=== PATIENT | female | born 1990 | race Caucasian/White ===

== ENCOUNTER 2022-10-08 06:56 | Outpatient (CLI) | payer OTHER ==
[2022-10-08 07:33] LABS: BASOPHILS # (AUTO) 0.1 K/uL (0.00-0.22); BASOPHILS % (AUTO) 1.2 % (0.0-2.0); EOSINOPHILS # (AUTO) 0.1 K/uL (0-0.4); EOSINOPHILS % (AUTO) 1.3 % (0.0-4.0); HEMATOCRIT 33.3 % (36-48); HEMOGLOBIN 10.7 g/dL (12.0-16.0); LYMPHOCYTES # (AUTO) 3.1 K/uL (2.5-16.5); LYMPHOCYTES % (AUTO) 31.8 % (20.5-51.1); MEAN CORPUSCULAR HEMOGLOBIN 23 pg (27-31); MEAN CORPUSCULAR HGB CONC 32 g/dL (33-37); MEAN CORPUSCULAR VOLUME 72.6 fL (80-94); MONOCYTES # (AUTO) 0.4 K/uL (0.8-1.0); MONOCYTES % (AUTO) 4.5 % (1.7-9.3); NEUTROPHILS # (AUTO) 5.9 K/uL (1.8-7.7); NEUTROPHILS % (AUTO) 61.2 % (42.2-75.2); PLATELET COUNT (AUTO) 366 K/uL (140-450); RED BLOOD CELL COUNT(AUTO) 4.59 MIL/uL (4.20-5.40); RED CELL DISTRIBUTION WIDTH 16.7 % (11.6-13.7); WHITE BLOOD COUNT (AUTO) 9.7 K/uL (4.8-10.8)
[2022-10-08 09:21] LABS: ALBUMIN 3.6 g/dL (3.4-5.0); ANION GAP 14.6 (8-16); CARBON DIOXIDE 24.3 mmol/L (21-32); CHOL/HDL RATIO 4.6 (1-4.5); CREATININE 0.8 mg/dL (0.6-1.3); POTASSIUM 3.9 mmol/L (3.5-5.1); THYROID STIMULATING HORMONE 2.73 uIU/mL (0.34-3.74); TOTAL BILIRUBIN 0.2 mg/dL (0.0-1.0)
[2022-10-08 09:49] LABS: APPEARANCE,URINE CLEAR (CLEAR); BILIRUBIN,URINE NEGATIVE (NEGATIVE); BLOOD, URINE 3+ (NEGATIVE); COLOR,URINE YELLOW (YELLOW); LEUKOCYTE ESTERASE ,URINE 1+ (NEGATIVE); NITRITE, URINE NEGATIVE (NEGATIVE); PH,URINE 5.5 (5.0-9.0); UGLUCOSE NEGATIVE (NEGATIVE)
[2022-10-09 09:07] LABS: ESTRADIOL SERUM 32.6 pg/mL (.); T4 (THYROXINE) 7.6 ug/dL (4.5-12.0)
== END 2022-10-08 21:05 | disposition home or self-care (01) ==
LOC: MLB 06:56
DX: Z13.1 Encounter for screening for diabetes mellitus (principal); Z13.9 Encounter for screening, unspecified; I10 Essential (primary) hypertension; E78.5 Hyperlipidemia, unspecified; Z79.899 Other long term (current) drug therapy
CPT/HCPCS: 36415; 80053; 81003; 82306; 82670; 83036; 84144; 84403; 84436; 84443; 85025; 87086

== ENCOUNTER 2022-12-02 07:57 | Emergency (ER) | payer OTHER ==
[~2022-12-02] VITALS: Ht 170.2 cm; Wt 122.5 kg
[2022-12-02 07:59] VITALS: BP 134/74; PULSE 75; RESP 18; TEMP 97; O2SAT 96
--- NOTE | 2022-12-02 08:02 | NUR ---
PT NOT AT BEDSIDE. UNABLE TO LOCATE. RESTROOMS CHECKED AND ED AREA
[2022-12-02] MEDS ORDERED: NIRM1TAB PO (09:04)
== END 2022-12-02 09:14 | disposition home or self-care (01) ==
LOC: MED 07:57
DX: U07.1 COVID-19 (principal); Z79.899 Other long term (current) drug therapy
CPT/HCPCS: 81025; 99283

== ENCOUNTER 2023-04-22 08:11 | Emergency (ER) | payer OTHER ==
[~2023-04-22] VITALS: Ht 167.6 cm; Wt 127.0 kg
[~2023-04-22 08:11] MED LIST: NIRM1TAB PO
[2023-04-22 08:16] VITALS: BP 126/69; PULSE 92; RESP 20; TEMP 97.5; O2SAT 97
[2023-04-22] MEDS ORDERED: NIRM1TAB PO (08:26)
[2023-04-22 09:01] VITALS: BP 126/69; PULSE 92; RESP 20; TEMP 97.5; O2SAT 97
== END 2023-04-22 09:00 | disposition home or self-care (01) ==
LOC: MED 08:11
DX: U07.1 COVID-19 (principal); Z79.899 Other long term (current) drug therapy
CPT/HCPCS: 81025; 99283

== ENCOUNTER 2023-08-23 14:17 | Emergency (ER) | payer OTHER ==
[~2023-08-23] VITALS: Ht 170.2 cm; Wt 127.0 kg
[2023-08-23 14:32] VITALS: PULSE 78; RESP 18; TEMP 96.4; O2SAT 97
[2023-08-23] MEDS: KETOROLAC 30 MG/ML VIAL IM ONE (15:13)
[2023-08-23] MEDS ORDERED: CYCL-711 PO (16:22)
[2023-08-23] MEDS ORDERED: NAPR-54 PO (16:22)
[2023-08-23] MEDS ORDERED: LID5T TP (16:22)
[2023-08-23] MEDS ORDERED: TRAM-748 PO (16:22)
== END 2023-08-23 16:41 | disposition home or self-care (01) ==
LOC: MED 14:17
DX: S83.8X2A Sprain of other specified parts of left knee, initial encounter (principal); M54.50 Low back pain, unspecified; Z79.899 Other long term (current) drug therapy; W18.30XA Fall on same level, unspecified, initial encounter; Y93.89 Activity, other specified; Y92.89 Other specified places as the place of occurrence of the external cause; Y99.8 Other external cause status
CPT/HCPCS: 72110; 73562; 73590; 81025; 96372; 99284; J1885

== ENCOUNTER 2023-10-04 06:18 | Outpatient (CLI) | payer OTHER ==
[~2023-10-04 06:18] MED LIST changes: +CYCL-711 PO; +LID5T TP; +NAPR-337 PO; +TRAM-748 PO
[2023-10-04 07:52] LABS: BASOPHILS # (AUTO) 0.1 K/uL (0.00-0.22); BASOPHILS % (AUTO) 0.9 % (0.0-2.0); EOSINOPHILS # (AUTO) 0.1 K/uL (0-0.4); EOSINOPHILS % (AUTO) 1.3 % (0.0-4.0); HEMATOCRIT 34.5 % (36-48); LYMPHOCYTES # (AUTO) 3.2 K/uL (2.5-16.5); LYMPHOCYTES % (AUTO) 29.7 % (20.5-51.1); MEAN CORPUSCULAR HEMOGLOBIN 23 pg (27-31); MEAN CORPUSCULAR HGB CONC 32 g/dL (33-37); MEAN CORPUSCULAR VOLUME 73.3 fL (80-94); MONOCYTES # (AUTO) 0.4 K/uL (0.8-1.0); MONOCYTES % (AUTO) 4.1 % (1.7-9.3); NEUTROPHILS # (AUTO) 6.9 K/uL (1.8-7.7); PLATELET COUNT (AUTO) 392 K/uL (140-450); RED BLOOD CELL COUNT(AUTO) 4.71 MIL/uL (4.20-5.40); RED CELL DISTRIBUTION WIDTH 17.5 % (11.6-13.7); WHITE BLOOD COUNT (AUTO) 10.8 K/uL (4.8-10.8)
[2023-10-04 08:14] LABS: ALBUMIN 3.6 g/dL (3.4-5.0); ANION GAP 10.4 (8-16); CALCIUM 8.7 mg/dL (8.5-10.1); CARBON DIOXIDE 28.9 mmol/L (21-32); CHOL/HDL RATIO 4.7 (1-4.5); CREATININE 0.7 mg/dL (0.6-1.3); POTASSIUM 4.3 mmol/L (3.5-5.1); THYROID STIMULATING HORMONE 2.33 uIU/mL (0.34-3.74); TOTAL BILIRUBIN 0.4 mg/dL (0.0-1.0)
[2023-10-06 18:38] LABS: T4 FREE (DIRECT) 0.94 ng/ml (0.82-1.77)
[2023-10-06 18:43] LABS: VITAMIN D, 25-HYDROXY 16.4 ng/mL (30.0-100.0)
== END 2023-10-04 22:56 | disposition home or self-care (01) ==
LOC: MLB 06:18
DX: Z13.1 Encounter for screening for diabetes mellitus (principal); Z13.9 Encounter for screening, unspecified; Z13.220 Encounter for screening for lipoid disorders; Z13.29 Encounter for screening for other suspected endocrine disorder; E55.9 Vitamin D deficiency, unspecified; N39.0 Urinary tract infection, site not specified
CPT/HCPCS: 36415; 80053; 82306; 83036; 84436; 84439; 84443; 85025; 87086